=== PATIENT | male | born 1955 | race Caucasian/White ===

== ENCOUNTER 2016-10-29 09:44 | Day surgery (SDC) | payer BC ==
[2016-10-29 10:31] VITALS: BMI 21.2
[2016-10-29] MEDS ORDERED: Propofol 10 mg/ml Inj (20 ML) ONE (11:36)
[2016-10-29] MEDS ORDERED: Lactated Ringer's 500 ML IV ONE (12:00)
[2016-10-29 12:18] VITALS: TEMP 97.6
[2016-10-29 12:57] VITALS: BP 115/78; PULSE 64; RESP 17; O2SAT 99
== END 2016-10-29 13:10 | disposition home or self-care (01) ==
LOC: C.ENDO 09:44
PROVIDERS: ATTEND Internal Medicine Gastroenterology
DX: K29.50 Unspecified chronic gastritis without bleeding (principal)
CPT/HCPCS: 43239; 82948; 88305; 88313; 88342; J2704; J7120